=== PATIENT | female | born 1940 | race Caucasian/White ===

== ENCOUNTER 2018-02-11 07:03 | Emergency (ER) | payer OTHER, MEDICARE ==
--- NOTE | 2018-02-11 07:19 | ED GENERAL ADULT ---
History of Present Illness General Chief Complaint: Hip Injury Stated Complaint: RT HIP PAIN S/P FALL DOWN STAIRS Source: patient, family Exam Limitations: no limitations Vital Signs & Intake/Output Vital Signs & Intake/Output Vital Signs Date Time Temp Pulse Resp B/P B/P Pulse O2 O2 Flow FiO2 Mean Ox Delivery Rate 02/11 0731 97.2 70 18 138/73 97 Room Air Patient was given Tylenol and x-rays were ordered. Allergies Coded Allergies: No Known Allergies (02/11/18) Reconcile Medications Amlodipine Besylate 5 MG TABLET 1 TAB PO DAILY HEART (Reported) Atenolol 50 MG TABLET 1 TAB PO DAILY HEART (Reported) Atorvastatin Calcium 10 MG TABLET 1 TAB PO DAILY CHOLESTEROL (Reported) Brimonidine Tartrate/Timolol (Combigan Eye Drops) 0.2 %-0.5 % DROPS 1 DROP OP BID GLAUCOMA (Reported) Citalopram Hydrobromide (Celexa) 40 MG TABLET 1 TAB PO DAILY MENTAL HEALTH ( Reported) Gluc HCl/Csa/Swati Hy/Hyalur AC (Glucosamine Chondroitin Cap) 375 MG-300 MG-50 MG -2 MG CAPSULE 1 CAP PO DAILY SUPPLEMENT (Reported) Multivit-Min/Iron/Folic/Lutein (Centrum Silver Women Tablet) 8 MG IRON-400 MCG- 300 MCG TABLET 1 TAB PO DAILY VITAMIN SUPPORT (Reported) Naproxen Sodium (Aleve) 220 MG TABLET 2 TAB PO DAILY PAIN (Reported) Valsartan/Hydrochlorothiazide (Valsartan-Hctz 160-12.5 MG Tab) 160 MG-12.5 MG TABLET 1 TAB PO DAILY HEART (Reported) Triage Nurses Notes Reviewed? yes Onset: Abrupt Duration: hour(s): Timing: recent history HPI: 02/11/18 7:28 AM This is a rosamaria 77-year-old female who was walking down stairs when her foot slipped on the stair and she tumbled down 11 steps. She complains of pain to the left shoulder, the right hand, the right hip, and the right knee. She denies loss of consciousness. She denies neck pain. She denies chest pain or shortness of breath. Past History Travel History Traveled to [place] past 21 day No Medical History Any Pertinent Medical History? see below for history EENT: CATARACTS, GLAUCOMA Cardiovascular: hypertension Surgical History Surgical History: appendectomy, STATUS POST HIP REPLACEMENT Family History Hx Contributory? No Review of Systems Review of Systems Constitutional: Denies: fever. EENTM: Reports: no symptoms. Respiratory: Denies: short of breath. Cardiovascular: Denies: chest pain. GI: Denies: abdominal pain. Genitourinary: Reports: no symptoms. Musculoskeletal: Reports: see HPI. Skin: Denies: rash. Neurological/Psychological: Reports: headache. Hematologic/Endocrine: Denies: bruising, bleeding. Physical Exam Physical Exam General Appearance: alert, awake, anxious, mild distress Head: atraumatic, normal appearance Eyes: Bilateral: normal appearance, PERRL, EOMI. Ears, Nose, Throat: normal pharynx, normal ENT inspection Neck: normal inspection, supple, full range of motion Respiratory: normal breath sounds, chest non-tender, no respiratory distress Cardiovascular: regular rate/rhythm Peripheral Pulses: 3+ radial (R), 3+ radial (L) Gastrointestinal: soft, non-tender Back: decreased range of motion Extremities: pelvis stable Neurologic/Psych: no motor/sensory deficits, awake, alert, oriented x 3 Skin: intact, normal color, warm/dry Core Measures ACS in differential dx? No CVA/TIA Diagnosis: No Sepsis Present: No Sepsis Focused Exam Completed? No Progress Differential Diagnoses I considered the following diagnoses in my evaluation of the patient: [Fracture, intracranial bleed, other occult injuries] Plan of Care: Current Medications Sig/Thelma Start time Last Medication Dose Stop Time Status Admin Acetaminophen 975 MG ONCE ONE 02/11 0730 CAN (Tylenol) 02/11 0731 Initial ED EKG: none Departure Departure Disposition: STILL A PATIENT Condition: Stable Clinical Impression Primary Impression: Fall Secondary Impressions: Arthritis Referrals: Emy HICKS,Liang Adams (PCP/Family) Departure Forms: Customer Survey General Discharge Information Comments Patient was given Tylenol. CT scan of the head and imaging studies of the injured areas were ordered. X-rays of the ankle, pelvis, hand, shoulder, right hip all negative for fracture CT scan of the head is negative Daughter reports the patient is back to her baseline. She does intermittently get confused at times. The patient was sitting in her bed reading the newspaper oriented 3. The daughter is going to have her stay with them for the time being. Critical Care Note Critical Care Note Critical Care Time: non-applicable
--- NOTE | 2018-02-11 08:16 | RADIOLOGY REPORT ---
EXAMINATION: XR SHOULDER, LEFT CLINICAL INFORMATION: Fall. Pain. COMPARISON: No relevant prior imaging. TECHNIQUE: Three views of the left shoulder. FINDINGS: There is no acute fracture or dislocation. The acromioclavicular joint and glenohumeral joint are grossly intact. There is acromiohumeral interval is maintained. Soft tissues are unremarkable. Visualized portions of the left upper hemithorax reveal no abnormal finding. IMPRESSION: Unremarkable left shoulder radiographs. No evidence of acute fracture and no dislocation.
--- NOTE | 2018-02-11 08:20 | RADIOLOGY REPORT ---
EXAMINATION: XR ANKLE, RIGHT CLINICAL INFORMATION: Fall. Pain. COMPARISON: No relevant prior imaging. TECHNIQUE: 3 views of the right ankle. FINDINGS: There is no acute fracture or dislocation. No incongruity on the ankle mortise view. Joint spaces are maintained. No joint effusion. Mild plantar calcaneal spurring. Soft tissues are unremarkable. IMPRESSION: Plantar calcaneal spurring. Otherwise unremarkable radiographs of the right ankle.
--- NOTE | 2018-02-11 08:22 | CT SCAN REPORT ---
EXAMINATION: CT HEAD WITHOUT CONTRAST CLINICAL INFORMATION: Fall. Pain. COMPARISON: No relevant prior imaging. TECHNIQUE: Contiguous axial imaging was performed from the skull base to vertex without intravenous administration of contrast. DLP: 615.95 mGy-cm FINDINGS: There is no acute intracranial hemorrhage or abnormal extra-axial collection. No intracranial mass effect or midline shift. Lateral and third ventricles are normal. No hydrocephalus. Ill-defined foci of hypoattenuation are visualized within the periventricular white matter that most likely represent a chronic manifestation of small vessel ischemia. Grossly no evidence of acute territorial infarct. The calvarium and skull base are intact. Mastoid air cells and middle ear cavities are well-aerated. There is degenerative arthrosis of the temporomandibular joints, greater on the right. Paranasal sinuses are well-aerated. Globes and orbits are symmetric. IMPRESSION: No acute intracranial hemorrhage.
[2018-02-11] MEDS ORDERED: VALSARTAN-HCTZ1 EAC1 PO (08:23)
[2018-02-11] MEDS ORDERED: ATENOLOL50 M1 PO (08:23)
[2018-02-11] MEDS ORDERED: AMLODIPINE BESYL5 M1 PO (08:24)
[2018-02-11] MEDS ORDERED: ATORVASTATIN CA10 M1 PO (08:24)
[2018-02-11] MEDS ORDERED: CELEXA40 M1 PO (08:24)
[2018-02-11] MEDS ORDERED: GLUCOSAMINE CH1 EAC2 PO (08:25)
[2018-02-11] MEDS ORDERED: ALEVE220 M2 PO (08:26)
[2018-02-11] MEDS ORDERED: CENTRUM SILVER1 EACH PO (08:26)
[2018-02-11] MEDS ORDERED: COMBIGAN EYE DRO5 ML OP (08:27)
--- NOTE | 2018-02-11 08:30 | RADIOLOGY REPORT ---
EXAMINATION: XR HAND, RIGHT CLINICAL INFORMATION: Fall. Pain. COMPARISON: No relevant prior imaging. TECHNIQUE: Three views of the right hand. FINDINGS: There is no acute fracture or dislocation. There is degenerative arthrosis of the second and third metacarpophalangeal joints. Mild marginal spurring at the base of the distal phalanges of the first through fifth digits. There is degenerative joint space narrowing with associated sclerotic subchondral changes at the first carpometacarpal joint. Proximal and distal carpal rows are otherwise intact. Neutral ulnar variance. Soft tissues are unremarkable. IMPRESSION: Degenerative changes of the right hand. No evidence of acute fracture and no dislocation.
--- NOTE | 2018-02-11 08:32 | RADIOLOGY REPORT ---
EXAMINATION: PELVIS RADIOGRAPHS RIGHT HIP RADIOGRAPHS CLINICAL INFORMATION: Fall. Pain. COMPARISON: No relevant prior imaging. TECHNIQUE: An AP view the pelvis was obtained. 2 additional views of the right hip were obtained. FINDINGS: There are chronic postoperative changes of a right and left total hip arthroplasty. The hardware is intact with no evidence of loosening or failure. No dislocation. The pelvic ring is intact. Sacroiliac joints are symmetric. Visualized bowel gas pattern is normal. Soft tissues are unremarkable. 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 No dislocation. No evidence of acute fracture.
--- NOTE | 2018-02-11 08:35 | RADIOLOGY REPORT ---
EXAMINATION: XR KNEE, RIGHT CLINICAL INFORMATION: Fall. Pain. COMPARISON: No relevant prior imaging. TECHNIQUE: Four views of the right knee. FINDINGS: There is mild asymmetric joint space narrowing of the medial compartment of the right knee with associated marginal osteophytic spurring. The lateral projection also demonstrates mild spurring at the quadriceps insertion on the patella. No evidence of acute fracture and and no dislocation. No joint effusion. Soft tissues are unremarkable. IMPRESSION: Mild degenerative changes. No evidence of acute fracture and no dislocation.
[2018-02-11 10:08] VITALS: BP 128/81
== END 2018-02-11 10:08 ==
LOC: ERH 07:03
DX: M25.512 Pain in left shoulder (principal); M79.641 Pain in right hand; M25.551 Pain in right hip; M25.561 Pain in right knee
CPT/HCPCS: 72170; 73030-LT; 73130-RT; 73502-RT; 73560-RT; 73610-RT